=== PATIENT | male | born 1970 | race Caucasian/White ===

== ENCOUNTER 2018-07-03 22:02 | Emergency (ER) | payer SELFPAY ==
[~2018-07-03] VITALS: Ht 177.8 cm; Wt 109.1 kg
[2018-07-04 01:11] VITALS: BP 141/78
== END 2018-07-04 01:11 | disposition home or self-care (01) ==
LOC: ED 22:02
DX: R60.0 Localized edema (principal); E11.9 Type 2 diabetes mellitus without complications; I10 Essential (primary) hypertension; Z98.890 Other specified postprocedural states
CPT/HCPCS: J1885; Q0092